=== PATIENT | female | born 1940 | race Caucasian/White ===

== ENCOUNTER → 2019-12-08 | Outpatient (REF) | payer MEDICARE, BC ==
[2019-12-08 13:41] LABS: APPEARANCE, URINE CLEAR (CLEAR); BACTERIA, URINE AUTO NEGATIVE (NEGATIVE); BILIRUBIN, URINE AUTO NEGATIVE (NEGATIVE); BLOOD, URINE BLOOD NEGATIVE (NEGATIVE); COLOR, URINE STRAW (YELLOW); GLUCOSE, URINE (UA) AUTO NEGATIVE (NEGATIVE); KETONE, URINE AUTO NEGATIVE (NEGATIVE); LEUKOCYTE ESTERASE, URINE AUTO NEGATIVE (NEGATIVE); MUCUS, URINE SMALL (NEGATIVE); NITRITE, URINE AUTO NEGATIVE (NEGATIVE); PROTEIN, URINE AUTO NEGATIVE (NEGATIVE); RBC, URINE AUTO 0 /HPF (0-3); SPECIFIC GRAVITY URINE AUTO 1.002 (1.002-1.035); SQUAMOUS EPITHELIAL CELL UR AU 0 /HPF (0-6); UROBILINOGEN, URINE AUTO 0.2 mg/dL (0.0-2.0); WBC, URINE AUTO 0 /HPF (0-3)
== END ==
LOC: M LAB REF 13:01
PROVIDERS: ATTEND General Practice
DX: R39.9 Unspecified symptoms and signs involving the genitourinary system (principal)

== ENCOUNTER 2022-09-20 12:09 | Inpatient (IN) | payer MEDICARE, BC ==
[~2022-09-20] VITALS: Ht 165.1 cm; Wt 45.0 kg
[2022-09-20] MEDS ORDERED: LOSA50TA28 PO (12:30)
[2022-09-20] MEDS ORDERED: MIRT-10 PO (12:30)
[2022-09-20] MEDS ORDERED: CARV25TA PO (12:30)
[2022-09-20] MEDS ORDERED: POTA1TAB23 PO (12:30)
[2022-09-20] MEDS ORDERED: LORA1TAB23 PO (12:30)
[2022-09-20 13:32] LABS: BASO % 0.4 % (0.0-1.0); EOS % 0.2 % (0.0-3.0); HEMATOCRIT 31.6 % (36.0-47.0); HEMOGLOBIN 10.9 g/dl (12.0-15.5); LYMPH # 0.7 10^3/uL (1.5-5.0); LYMPH % 8.4 % (24.0-44.0); MEAN CORPUSCULAR HEMOGLOBIN 34.1 pg (27.0-33.0); MEAN CORPUSCULAR HGB CONC 34.5 g/dl (32.0-36.5); MEAN CORPUSCULAR VOLUME 98.8 fl (80.0-96.0); MONO # 0.8 10^3/uL (0.0-0.8); MONO % 10.2 % (2.0-8.0); NEUTROPHILS # 6.5 10^3/uL (1.5-8.5); NEUTROPHILS % 80.4 % (36.0-66.0); PLATELET COUNT, AUTOMATED 208 10^3/uL (150-450); WHITE BLOOD COUNT 8.1 10^3/uL (4.0-10.0)
[2022-09-20 14:06] LABS: BLOOD UREA NITROGEN 14 MG/DL (9-23); CALCIUM LEVEL 7.9 MG/DL (8.3-10.6); CARBON DIOXIDE LEVEL 26 MMOL/L (20-31); CHLORIDE LEVEL 98 MMOL/L (98-107); CREATININE FOR GFR 0.42 MG/DL (0.55-1.30); GLOMERULAR FILTRATION RATE > 60.0 (>32); GLUCOSE, FASTING 107 MG/DL (74-106); POTASSIUM SERUM 4.4 MMOL/L (3.5-5.1); SODIUM LEVEL 132 MMOL/L (136-145)
[2022-09-20] MEDS ORDERED: VITA100017 PO (15:00)
[2022-09-20] MEDS ORDERED: MULT-90 PO (15:00)
[2022-09-20] MEDS ORDERED: CALTTAB2 PO (15:00)
[2022-09-20] MEDS ORDERED: HOME MED LIST COMPLETE! XX SCH (15:05)
[2022-09-20 15:12] LABS: RSV AMPLIFICATION NEGATIVE (NEGATIVE)
[2022-09-20 16:20] VITALS: BP 151/80
[2022-09-20] MEDS: ACETAMINOPHEN 500 MG TAB PO PRN (16:41)
[2022-09-20] MEDS: CARVedilol 12.5 MG TAB PO SCH (20:26)
[2022-09-20 20:30] VITALS: BP 138/73
[2022-09-20] MEDS ORDERED: MIRTAZAPINE 15 MG TAB PO SCH (21:00)
[2022-09-20] MEDS ORDERED: LORazepam 1 MG TAB PO SCH (21:00)
[2022-09-21 02:02] VITALS: BP 114/58
[2022-09-21] MEDS: ACETAMINOPHEN 500 MG TAB PO PRN ×3 (03:56→15:58)
[2022-09-21 05:33] VITALS: BP 130/63
[2022-09-21 06:17] LABS: HEMATOCRIT 29.3 % (36.0-47.0); HEMOGLOBIN 9.9 g/dl (12.0-15.5); MEAN CORPUSCULAR HEMOGLOBIN 33.6 pg (27.0-33.0); MEAN CORPUSCULAR HGB CONC 33.8 g/dl (32.0-36.5); MEAN CORPUSCULAR VOLUME 99.3 fl (80.0-96.0); PLATELET COUNT, AUTOMATED 179 10^3/uL (150-450); RED BLOOD COUNT 2.95 10^6/uL (4.00-5.40); WHITE BLOOD COUNT 5.8 10^3/uL (4.0-10.0)
[2022-09-21 06:51] LABS: BLOOD UREA NITROGEN 14 MG/DL (9-23); CALCIUM LEVEL 7.9 MG/DL (8.3-10.6); CARBON DIOXIDE LEVEL 27 MMOL/L (20-31); CHLORIDE LEVEL 98 MMOL/L (98-107); CREATININE FOR GFR 0.47 MG/DL (0.55-1.30); GLOMERULAR FILTRATION RATE > 60.0 (>32); GLUCOSE, FASTING 93 MG/DL (74-106); POTASSIUM SERUM 4.2 MMOL/L (3.5-5.1); SODIUM LEVEL 131 MMOL/L (136-145)
[2022-09-21] MEDS ORDERED: ENOXAPARIN 40MG/0.4ML SYRINGE (J1650 PER 10MG) SC SCH (09:00)
[2022-09-21] MEDS ORDERED: POTASSIUM CHLORIDE 10MEQ SR TABLET PO SCH (09:00)
[2022-09-21] MEDS ORDERED: LOSARTAN 50MG TABLET PO SCH (09:00)
[2022-09-21 09:19] VITALS: BP 130/63
[2022-09-21] MEDS: CARVedilol 12.5 MG TAB PO SCH (09:20)
[2022-09-21 10:00] VITALS: BP 120/60
[2022-09-21 14:00] VITALS: BP 120/87
[2022-09-21] MEDS ORDERED: LOVE1INJ SC (19:11)
[2022-09-21] MEDS ORDERED: ACET-683 PO (19:11)
[2022-09-21] MEDS ORDERED: ACET-897 PO (21:34)
[2022-09-21] MEDS ORDERED: ENOX40IN3 SC (21:34)
[2022-09-21] MEDS ORDERED: VITMTA PO (21:34)
== END 2022-09-21 20:00 | DRG 563 ==
LOC: EDBD 12:09 → M ED 12:09 → M ED INP 14:33 → ENRESERV 14:55 → M MSPAV 16:18
PROVIDERS: ADMIT Family Medicine; ATTEND Family Medicine
DX: S42.211A Unspecified displaced fracture of surgical neck of right humerus, initial encounter for closed fracture (principal); W18.30XA Fall on same level, unspecified, initial encounter; Y93.9 Activity, unspecified; Y99.8 Other external cause status; I11.9 Hypertensive heart disease without heart failure; G47.00 Insomnia, unspecified; M81.0 Age-related osteoporosis without current pathological fracture; E55.9 Vitamin D deficiency, unspecified; R29.6 Repeated falls

== ENCOUNTER 2022-09-21 11:24 | Inpatient (IN) | payer MEDICARE, BC ==
[~2022-09-21] VITALS: Ht 165.1 cm; Wt 48.1 kg
[~2022-09-21 11:24] MED LIST: CALTTAB2 PO; CARV25TA PO; LORA1TAB23 PO; LOSA50TA28 PO; MIRT-10 PO; MULT-90 PO; POTA1TAB23 PO; VITA100017 PO
[2022-09-21] MEDS ORDERED: LOVE1INJ SC (19:11)
[2022-09-21] MEDS ORDERED: ACET-683 PO (19:11)
[2022-09-21 20:30] VITALS: BP 175/80; TEMP 96.8; O2SAT 92
[2022-09-21] MEDS: DOCUSATE SODIUM 100MG CAPSULE PO SCH (21:00)
[2022-09-21] MEDS: ACETAMINOPHEN 500 MG TAB PO SCH ×2 (21:00→22:41)
[2022-09-21] MEDS: SENNA 8.6 MG TAB (SENOKOT) PO SCH (21:00)
[2022-09-21] MEDS ORDERED: VITMTA PO (21:34)
[2022-09-21] MEDS ORDERED: ACET-897 PO (21:34)
[2022-09-21] MEDS ORDERED: ENOX40IN3 SC (21:34)
[2022-09-21] MEDS ORDERED: HOME MED LIST COMPLETE! XX SCH (21:35)
[2022-09-21] MEDS: MIRTAZAPINE 15 MG TAB PO SCH (22:40)
[2022-09-21] MEDS: CARVedilol 12.5 MG TAB PO SCH (22:41)
[2022-09-21] MEDS: LORazepam 1 MG TAB PO SCH (23:02)
[2022-09-22 06:00] VITALS: BP 156/74; TEMP 98.6; O2SAT 94
[2022-09-22 06:23] LABS: BASO % 0.5 % (0.0-1.0); EOS # 0.2 10^3/uL (0.0-0.5); EOS % 3.3 % (0.0-3.0); HEMATOCRIT 29.2 % (36.0-47.0); HEMOGLOBIN 10.1 g/dl (12.0-15.5); LYMPH % 17.4 % (24.0-44.0); MEAN CORPUSCULAR HEMOGLOBIN 33.8 pg (27.0-33.0); MEAN CORPUSCULAR HGB CONC 34.6 g/dl (32.0-36.5); MEAN CORPUSCULAR VOLUME 97.7 fl (80.0-96.0); MONO # 0.5 10^3/uL (0.0-0.8); MONO % 8.6 % (2.0-8.0); NEUTROPHILS % 69.8 % (36.0-66.0); PLATELET COUNT, AUTOMATED 199 10^3/uL (150-450); RED BLOOD COUNT 2.99 10^6/uL (4.00-5.40); WHITE BLOOD COUNT 5.7 10^3/uL (4.0-10.0)
[2022-09-22 06:49] LABS: ALBUMIN 2.6 G/DL (3.2-5.2); ALKALINE PHOSPHATASE 90 U/L (46-116); ALT/SGPT 18 U/L (7.0-40); AST/SGOT 15 U/L (<34); BILIRUBIN,TOTAL 0.6 MG/DL (0.3-1.2); BLOOD UREA NITROGEN 13 MG/DL (9-23); CALCIUM LEVEL 8.3 MG/DL (8.3-10.6); CARBON DIOXIDE LEVEL 26 MMOL/L (20-31); CHLORIDE LEVEL 96 MMOL/L (98-107); CREATININE FOR GFR 0.37 MG/DL (0.55-1.30); GLOMERULAR FILTRATION RATE > 60.0 (>32); GLUCOSE, FASTING 98 MG/DL (74-106); POTASSIUM SERUM 4.1 MMOL/L (3.5-5.1); SODIUM LEVEL 127 MMOL/L (136-145); TOTAL PROTEIN 5.4 G/DL (5.7-8.2)
[2022-09-22] MEDS: PANTOPRAZOLE 40MG TAB (PROTONIX) PO SCH (09:00)
[2022-09-22] MEDS ORDERED: POTASSIUM CHLORIDE 10MEQ SR TABLET PO SCH (09:00)
[2022-09-22] MEDS ORDERED: LOSARTAN 50MG TABLET PO SCH (09:00)
[2022-09-22] MEDS: DOCUSATE SODIUM 100MG CAPSULE PO SCH ×2 (09:08→20:06)
[2022-09-22] MEDS: ENOXAPARIN 40MG/0.4ML SYRINGE (J1650 PER 10MG) SC SCH (09:10)
[2022-09-22] MEDS: ACETAMINOPHEN 500 MG TAB PO SCH ×3 (09:10→21:00)
[2022-09-22] MEDS: CARVedilol 12.5 MG TAB PO SCH ×2 (09:10→19:44)
[2022-09-22] MEDS: VITAMIN D 1,000 INTERNATIONAL UNITS TABLET PO SCH (12:40)
[2022-09-22 13:29] LABS: FERRITIN 234.6 NG/ML (7.3-270.7)
[2022-09-22 13:31] LABS: FOLATE 20.98 NG/ML (>5.4)
[2022-09-22 14:00] VITALS: BP 158/70; TEMP 97.4; O2SAT 96
[2022-09-22 16:24] LABS: OSMOLALITY URINE 551 MOSM/KG (50-1400)
[2022-09-22] MEDS: NS 1,000 ML IV SCH (16:25)
[2022-09-22 16:38] LABS: SODIUM,RANDOM URINE 28 MMOL/L
[2022-09-22 18:45] LABS: SODIUM LEVEL 124 MMOL/L (136-145)
[2022-09-22 20:00] VITALS: BP 164/82; TEMP 97.6; O2SAT 98
[2022-09-22] MEDS: MIRTAZAPINE 15 MG TAB PO SCH (20:02)
[2022-09-22] MEDS: SENNA 8.6 MG TAB (SENOKOT) PO SCH (20:06)
[2022-09-22 20:41] LABS: OSMOLALITY SERUM 258 MOSM/KG (280-301)
[2022-09-22] MEDS ORDERED: LORazepam 1 MG TAB PO SCH (21:00)
[2022-09-22] MEDS: LORazepam 1 MG TAB PO SCH (21:02)
[2022-09-22] MEDS: LOSARTAN 50MG TABLET PO SCH (21:02)
[2022-09-23 06:00] VITALS: BP 155/74; TEMP 97.6; O2SAT 95
[2022-09-23 06:03] LABS: BLOOD UREA NITROGEN 11 MG/DL (9-23); CALCIUM LEVEL 7.6 MG/DL (8.3-10.6); CARBON DIOXIDE LEVEL 24 MMOL/L (20-31); CHLORIDE LEVEL 95 MMOL/L (98-107); CREATININE FOR GFR 0.35 MG/DL (0.55-1.30); GLOMERULAR FILTRATION RATE > 60.0 (>32); GLUCOSE, FASTING 88 MG/DL (74-106); POTASSIUM SERUM 3.7 MMOL/L (3.5-5.1); SODIUM LEVEL 125 MMOL/L (136-145)
[2022-09-23] MEDS: PANTOPRAZOLE 40MG TAB (PROTONIX) PO SCH (07:21)
[2022-09-23] MEDS: ACETAMINOPHEN 500 MG TAB PO SCH ×3 (07:22→19:27)
[2022-09-23] MEDS: DOCUSATE SODIUM 100MG CAPSULE PO SCH ×2 (07:22→19:26)
[2022-09-23] MEDS: VITAMIN D 1,000 INTERNATIONAL UNITS TABLET PO SCH (07:23)
[2022-09-23] MEDS: ENOXAPARIN 40MG/0.4ML SYRINGE (J1650 PER 10MG) SC SCH (07:23)
[2022-09-23] MEDS: LOSARTAN 50MG TABLET PO SCH ×2 (07:23→20:20)
[2022-09-23] MEDS: CARVedilol 12.5 MG TAB PO SCH ×2 (07:23→20:21)
[2022-09-23] MEDS: NS 1,000 ML IV SCH (07:39)
[2022-09-23 09:54] LABS: URIC ACID 1.2 MG/DL (3.1-7.8)
[2022-09-23] MEDS ORDERED: TOLVAPTAN 7.5 MG HALF-TAB PO ONE (11:00)
[2022-09-23] MEDS: GABAPENTIN 100 MG CAP PO SCH ×3 (11:14→20:19)
[2022-09-23 14:00] VITALS: BP 164/69; TEMP 97.2; O2SAT 95
[2022-09-23] MEDS: SENNA 8.6 MG TAB (SENOKOT) PO SCH (19:25)
[2022-09-23 20:00] VITALS: BP 159/84; TEMP 97.9; O2SAT 94
[2022-09-23] MEDS: MIRTAZAPINE 15 MG TAB PO SCH (20:20)
[2022-09-23] MEDS: LORazepam 1 MG TAB PO SCH (20:20)
[2022-09-23] MEDS ORDERED: MAGNESIUM OXIDE 400MG TAB (MAG-OX) PO SCH (21:00)
[2022-09-24 06:00] VITALS: BP 148/71; TEMP 98; O2SAT 95
[2022-09-24 06:57] LABS: BLOOD UREA NITROGEN 12 MG/DL (9-23); CALCIUM LEVEL 7.7 MG/DL (8.3-10.6); CARBON DIOXIDE LEVEL 25 MMOL/L (20-31); CHLORIDE LEVEL 103 MMOL/L (98-107); CREATININE FOR GFR 0.46 MG/DL (0.55-1.30); GLOMERULAR FILTRATION RATE > 60.0 (>32); GLUCOSE, FASTING 82 MG/DL (74-106); POTASSIUM SERUM 3.7 MMOL/L (3.5-5.1); SODIUM LEVEL 134 MMOL/L (136-145)
[2022-09-24] MEDS: DOCUSATE SODIUM 100MG CAPSULE PO SCH ×2 (07:15→20:13)
[2022-09-24] MEDS: VITAMIN D 1,000 INTERNATIONAL UNITS TABLET PO SCH (07:15)
[2022-09-24] MEDS: GABAPENTIN 100 MG CAP PO SCH (07:15)
[2022-09-24] MEDS: PANTOPRAZOLE 40MG TAB (PROTONIX) PO SCH (07:16)
[2022-09-24] MEDS: ACETAMINOPHEN 500 MG TAB PO SCH ×3 (07:16→20:21)
[2022-09-24] MEDS: CARVedilol 12.5 MG TAB PO SCH ×2 (07:16→20:17)
[2022-09-24] MEDS: LOSARTAN 50MG TABLET PO SCH ×2 (07:16→20:14)
[2022-09-24] MEDS: ENOXAPARIN 40MG/0.4ML SYRINGE (J1650 PER 10MG) SC SCH (07:17)
[2022-09-24 11:27] LABS: MAGNESIUM LEVEL 1.6 MG/DL (1.8-2.4)
[2022-09-24 14:00] VITALS: BP 167/72; TEMP 97.9; O2SAT 93
[2022-09-24] MEDS: THIAMINE 100 MG TAB PO SCH (15:12)
[2022-09-24] MEDS: MAGNESIUM OXIDE 400MG TAB (MAG-OX) PO SCH ×2 (15:12→20:17)
[2022-09-24] MEDS ORDERED: SODIUM CHLORIDE 1 GM TAB PO ONE (17:30)
[2022-09-24 20:00] VITALS: BP 161/81; TEMP 98.1; O2SAT 92
[2022-09-24] MEDS: SODIUM CHLORIDE 1 GM TAB PO SCH (20:13)
[2022-09-24] MEDS: SENNA 8.6 MG TAB (SENOKOT) PO SCH (20:13)
[2022-09-24] MEDS: MIRTAZAPINE 7.5MG PER 1/2 TABLET PO SCH (20:49)
[2022-09-24] MEDS: LORazepam 1 MG TAB PO SCH (20:49)
[2022-09-24] MEDS ORDERED: GABAPENTIN 100 MG CAP PO SCH (21:00)
[2022-09-25 06:00] VITALS: BP 132/70; TEMP 98.1; O2SAT 96
[2022-09-25 07:18] LABS: BASO % 0.3 % (0.0-1.0); EOS # 0.1 10^3/uL (0.0-0.5); EOS % 1.5 % (0.0-3.0); HEMOGLOBIN 9.7 g/dl (12.0-15.5); LYMPH # 0.7 10^3/uL (1.5-5.0); LYMPH % 11.1 % (24.0-44.0); MEAN CORPUSCULAR HEMOGLOBIN 34.4 pg (27.0-33.0); MEAN CORPUSCULAR HGB CONC 34.6 g/dl (32.0-36.5); MEAN CORPUSCULAR VOLUME 99.3 fl (80.0-96.0); MONO # 0.4 10^3/uL (0.0-0.8); MONO % 7.1 % (2.0-8.0); NEUTROPHILS # 4.7 10^3/uL (1.5-8.5); NEUTROPHILS % 79.7 % (36.0-66.0); PLATELET COUNT, AUTOMATED 200 10^3/uL (150-450); RED BLOOD COUNT 2.82 10^6/uL (4.00-5.40)
[2022-09-25 07:31] LABS: BLOOD UREA NITROGEN 10 MG/DL (9-23); CALCIUM LEVEL 7.8 MG/DL (8.3-10.6); CARBON DIOXIDE LEVEL 26 MMOL/L (20-31); CHLORIDE LEVEL 99 MMOL/L (98-107); GLOMERULAR FILTRATION RATE > 60.0 (>32); GLUCOSE, FASTING 90 MG/DL (74-106); POTASSIUM SERUM 3.7 MMOL/L (3.5-5.1); SODIUM LEVEL 132 MMOL/L (136-145)
[2022-09-25] MEDS: THIAMINE 100 MG TAB PO SCH (08:22)
[2022-09-25] MEDS: LOSARTAN 50MG TABLET PO SCH ×2 (08:26→20:11)
[2022-09-25] MEDS: PANTOPRAZOLE 40MG TAB (PROTONIX) PO SCH (08:26)
[2022-09-25] MEDS: ACETAMINOPHEN 500 MG TAB PO SCH ×3 (08:26→20:10)
[2022-09-25] MEDS: DOCUSATE SODIUM 100MG CAPSULE PO SCH ×3 (08:26→20:11)
[2022-09-25] MEDS: SODIUM CHLORIDE 1 GM TAB PO SCH ×2 (08:26→20:09)
[2022-09-25] MEDS: MAGNESIUM OXIDE 400MG TAB (MAG-OX) PO SCH ×3 (08:26→20:11)
[2022-09-25] MEDS: ENOXAPARIN 40MG/0.4ML SYRINGE (J1650 PER 10MG) SC SCH (08:27)
[2022-09-25] MEDS: VITAMIN D 1,000 INTERNATIONAL UNITS TABLET PO SCH (08:27)
[2022-09-25] MEDS: CARVedilol 12.5 MG TAB PO SCH ×2 (08:27→20:10)
[2022-09-25] MEDS: GABAPENTIN 100 MG CAP PO SCH ×3 (09:47→20:10)
[2022-09-25 14:00] VITALS: BP 150/67; TEMP 97.3; O2SAT 98
[2022-09-25 19:25] VITALS: BP 148/76; TEMP 97; O2SAT 97
[2022-09-25] MEDS: SENNA 8.6 MG TAB (SENOKOT) PO SCH (20:10)
[2022-09-25] MEDS: MIRTAZAPINE 7.5MG PER 1/2 TABLET PO SCH (21:12)
[2022-09-25] MEDS: LORazepam 1 MG TAB PO SCH (21:13)
[2022-09-26 05:29] VITALS: BP 144/70; TEMP 97.5; O2SAT 94
[2022-09-26] MEDS ORDERED: tiZANidine 4 MG TAB PO ONE (05:40)
[2022-09-26 06:16] LABS: BLOOD UREA NITROGEN 11 MG/DL (9-23); CALCIUM LEVEL 8.1 MG/DL (8.3-10.6); CARBON DIOXIDE LEVEL 28 MMOL/L (20-31); CHLORIDE LEVEL 96 MMOL/L (98-107); CREATININE FOR GFR 0.39 MG/DL (0.55-1.30); GLOMERULAR FILTRATION RATE > 60.0 (>32); GLUCOSE, FASTING 95 MG/DL (74-106); SODIUM LEVEL 128 MMOL/L (136-145)
[2022-09-26 07:23] LABS: MAGNESIUM LEVEL 1.6 MG/DL (1.8-2.4)
[2022-09-26] MEDS: ACETAMINOPHEN 500 MG TAB PO SCH ×3 (07:39→20:39)
[2022-09-26] MEDS: MAGNESIUM OXIDE 400MG TAB (MAG-OX) PO SCH ×3 (07:39→20:39)
[2022-09-26] MEDS: GABAPENTIN 100 MG CAP PO SCH ×3 (07:40→21:24)
[2022-09-26] MEDS: VITAMIN D 1,000 INTERNATIONAL UNITS TABLET PO SCH (08:38)
[2022-09-26] MEDS: PANTOPRAZOLE 40MG TAB (PROTONIX) PO SCH (08:38)
[2022-09-26] MEDS: THIAMINE 100 MG TAB PO SCH (08:38)
[2022-09-26] MEDS: ENOXAPARIN 40MG/0.4ML SYRINGE (J1650 PER 10MG) SC SCH (08:38)
[2022-09-26] MEDS: DOCUSATE SODIUM 100MG CAPSULE PO SCH ×2 (08:38→19:48)
[2022-09-26] MEDS: SODIUM CHLORIDE 1 GM TAB PO SCH (08:38)
[2022-09-26] MEDS: CARVedilol 12.5 MG TAB PO SCH ×2 (08:39→20:39)
[2022-09-26] MEDS: LOSARTAN 50MG TABLET PO SCH ×2 (08:39→20:39)
[2022-09-26 14:00] VITALS: BP 147/72; TEMP 97.6; O2SAT 95
[2022-09-26] MEDS ORDERED: TOLVAPTAN 7.5 MG HALF-TAB PO ONE (14:00)
[2022-09-26] MEDS: SENNA 8.6 MG TAB (SENOKOT) PO SCH (19:48)
[2022-09-26 20:00] VITALS: BP 162/86; TEMP 97.3; O2SAT 95
[2022-09-26] MEDS: MIRTAZAPINE 7.5MG PER 1/2 TABLET PO SCH (20:39)
[2022-09-26] MEDS: LORazepam 1 MG TAB PO SCH (21:24)
[2022-09-27 06:00] VITALS: BP 159/73; TEMP 97.3; O2SAT 93
[2022-09-27 07:12] LABS: BLOOD UREA NITROGEN 9 MG/DL (9-23); CALCIUM LEVEL 8.5 MG/DL (8.3-10.6); CARBON DIOXIDE LEVEL 28 MMOL/L (20-31); CHLORIDE LEVEL 100 MMOL/L (98-107); GLOMERULAR FILTRATION RATE > 60.0 (>32); GLUCOSE, FASTING 90 MG/DL (74-106); POTASSIUM SERUM 3.8 MMOL/L (3.5-5.1); SODIUM LEVEL 134 MMOL/L (136-145)
[2022-09-27] MEDS: GABAPENTIN 100 MG CAP PO SCH ×3 (07:48→20:22)
[2022-09-27] MEDS: ACETAMINOPHEN 500 MG TAB PO SCH ×3 (07:49→21:00)
[2022-09-27] MEDS: THIAMINE 100 MG TAB PO SCH (07:49)
[2022-09-27] MEDS: PANTOPRAZOLE 40MG TAB (PROTONIX) PO SCH (07:49)
[2022-09-27] MEDS: VITAMIN D 1,000 INTERNATIONAL UNITS TABLET PO SCH (07:49)
[2022-09-27] MEDS: MAGNESIUM OXIDE 400MG TAB (MAG-OX) PO SCH ×3 (07:49→20:23)
[2022-09-27] MEDS: ENOXAPARIN 40MG/0.4ML SYRINGE (J1650 PER 10MG) SC SCH (07:50)
[2022-09-27] MEDS: DOCUSATE SODIUM 100MG CAPSULE PO SCH ×2 (07:50→20:22)
[2022-09-27] MEDS: LOSARTAN 50MG TABLET PO SCH ×2 (07:50→20:22)
[2022-09-27] MEDS: CARVedilol 12.5 MG TAB PO SCH ×2 (07:50→20:22)
[2022-09-27] MEDS: amLODIPine 5 MG TAB PO SCH (12:12)
[2022-09-27 14:00] VITALS: BP 160/67; TEMP 97.8; O2SAT 97
[2022-09-27 20:00] VITALS: BP 150/67; TEMP 98.3; O2SAT 96
[2022-09-27] MEDS: MIRTAZAPINE 7.5MG PER 1/2 TABLET PO SCH (20:21)
[2022-09-27] MEDS: SENNA 8.6 MG TAB (SENOKOT) PO SCH (20:22)
[2022-09-27] MEDS: LORazepam 1 MG TAB PO SCH (21:13)
[2022-09-28 06:00] VITALS: BP 144/69; TEMP 98.5; O2SAT 94
[2022-09-28 06:32] LABS: BASO % 0.6 % (0.0-1.0); EOS # 0.1 10^3/uL (0.0-0.5); EOS % 1.1 % (0.0-3.0); HEMATOCRIT 29.3 % (36.0-47.0); HEMOGLOBIN 9.8 g/dl (12.0-15.5); LYMPH # 0.8 10^3/uL (1.5-5.0); LYMPH % 12.3 % (24.0-44.0); MEAN CORPUSCULAR HEMOGLOBIN 33.9 pg (27.0-33.0); MEAN CORPUSCULAR HGB CONC 33.4 g/dl (32.0-36.5); MEAN CORPUSCULAR VOLUME 101.4 fl (80.0-96.0); MONO # 0.5 10^3/uL (0.0-0.8); MONO % 7.1 % (2.0-8.0); NEUTROPHILS % 78.4 % (36.0-66.0); PLATELET COUNT, AUTOMATED 241 10^3/uL (150-450); RED BLOOD COUNT 2.89 10^6/uL (4.00-5.40); WHITE BLOOD COUNT 6.4 10^3/uL (4.0-10.0)
[2022-09-28 07:00] LABS: BLOOD UREA NITROGEN 12 MG/DL (9-23); CALCIUM LEVEL 8.4 MG/DL (8.3-10.6); CARBON DIOXIDE LEVEL 27 MMOL/L (20-31); CHLORIDE LEVEL 98 MMOL/L (98-107); GLOMERULAR FILTRATION RATE > 60.0 (>32); GLUCOSE, FASTING 86 MG/DL (74-106); MAGNESIUM LEVEL 1.8 MG/DL (1.8-2.4); POTASSIUM SERUM 3.9 MMOL/L (3.5-5.1); SODIUM LEVEL 131 MMOL/L (136-145)
[2022-09-28] MEDS: GABAPENTIN 100 MG CAP PO SCH ×3 (08:15→20:14)
[2022-09-28] MEDS: amLODIPine 5 MG TAB PO SCH (08:16)
[2022-09-28] MEDS: MAGNESIUM OXIDE 400MG TAB (MAG-OX) PO SCH ×3 (08:16→20:14)
[2022-09-28] MEDS: PANTOPRAZOLE 40MG TAB (PROTONIX) PO SCH (08:16)
[2022-09-28] MEDS: ACETAMINOPHEN 500 MG TAB PO SCH ×3 (08:16→21:00)
[2022-09-28] MEDS: THIAMINE 100 MG TAB PO SCH (08:17)
[2022-09-28] MEDS: VITAMIN D 1,000 INTERNATIONAL UNITS TABLET PO SCH (08:17)
[2022-09-28] MEDS: ENOXAPARIN 40MG/0.4ML SYRINGE (J1650 PER 10MG) SC SCH (08:17)
[2022-09-28] MEDS: CARVedilol 12.5 MG TAB PO SCH ×2 (08:17→21:00)
[2022-09-28] MEDS: DOCUSATE SODIUM 100MG CAPSULE PO SCH ×2 (08:17→20:15)
[2022-09-28] MEDS: LOSARTAN 50MG TABLET PO SCH ×3 (08:17→21:00)
[2022-09-28 14:00] VITALS: BP 115/60; TEMP 98.2; O2SAT 96
[2022-09-28 20:00] VITALS: BP 119/56; TEMP 98.1; O2SAT 94
[2022-09-28] MEDS: MIRTAZAPINE 7.5MG PER 1/2 TABLET PO SCH (20:15)
[2022-09-28] MEDS: SENNA 8.6 MG TAB (SENOKOT) PO SCH (20:15)
[2022-09-28] MEDS: LORazepam 1 MG TAB PO SCH (21:16)
[2022-09-29] MEDS ORDERED: carisoprodoL 350 MG TAB PO PRN (04:40)
[2022-09-29 06:00] VITALS: BP 132/67; TEMP 98.1; O2SAT 94
[2022-09-29] MEDS: ACETAMINOPHEN 500 MG TAB PO SCH ×3 (07:20→20:28)
[2022-09-29] MEDS: amLODIPine 5 MG TAB PO SCH (07:24)
[2022-09-29] MEDS: CARVedilol 12.5 MG TAB PO SCH ×2 (07:24→20:29)
[2022-09-29] MEDS: PANTOPRAZOLE 40MG TAB (PROTONIX) PO SCH (07:24)
[2022-09-29] MEDS: LOSARTAN 50MG TABLET PO SCH ×2 (07:25→20:28)
[2022-09-29] MEDS: DOCUSATE SODIUM 100MG CAPSULE PO SCH ×2 (07:25→20:28)
[2022-09-29] MEDS: MAGNESIUM OXIDE 400MG TAB (MAG-OX) PO SCH (07:25)
[2022-09-29] MEDS: GABAPENTIN 100 MG CAP PO SCH ×3 (07:25→20:28)
[2022-09-29] MEDS: THIAMINE 100 MG TAB PO SCH (07:25)
[2022-09-29] MEDS: VITAMIN D 1,000 INTERNATIONAL UNITS TABLET PO SCH (07:26)
[2022-09-29] MEDS: ENOXAPARIN 40MG/0.4ML SYRINGE (J1650 PER 10MG) SC SCH (07:26)
[2022-09-29 09:51] LABS: ALBUMIN 2.7 G/DL (3.2-5.2); BLOOD UREA NITROGEN 11 MG/DL (9-23); CALCIUM LEVEL 7.8 MG/DL (8.3-10.6); CARBON DIOXIDE LEVEL 27 MMOL/L (20-31); CHLORIDE LEVEL 98 MMOL/L (98-107); CREATININE FOR GFR 0.36 MG/DL (0.55-1.30); GLOMERULAR FILTRATION RATE > 60.0 (>32); GLUCOSE, FASTING 94 MG/DL (74-106); PHOSPHORUS LEVEL 3.3 MG/DL (2.4-5.1); POTASSIUM SERUM 3.9 MMOL/L (3.5-5.1); SODIUM LEVEL 131 MMOL/L (136-145)
[2022-09-29] MEDS ORDERED: IBUPROFEN 600MG TAB PO ONE (11:00)
[2022-09-29] MEDS ORDERED: traMADol 50 MG TAB PO PRN (11:40)
[2022-09-29] MEDS: CYCLOBENZAPRINE 5MG TABLET PO PRN ×2 (12:10→21:08)
[2022-09-29 14:00] VITALS: BP 151/70; TEMP 98.3; O2SAT 95
[2022-09-29] MEDS: ANALGESIC BALM CRM 3OZ TOP SCH ×2 (15:46→20:29)
[2022-09-29 20:00] VITALS: BP 135/65; TEMP 97.3; O2SAT 95
[2022-09-29] MEDS: SENNA 8.6 MG TAB (SENOKOT) PO SCH (20:28)
[2022-09-29] MEDS ORDERED: LORazepam 0.5 MG TAB PO SCH (21:00)
[2022-09-29] MEDS: MIRTAZAPINE 7.5MG PER 1/2 TABLET PO SCH (21:07)
[2022-09-30 06:00] VITALS: BP 149/77; TEMP 97.9; O2SAT 93
[2022-09-30] MEDS: DOCUSATE SODIUM 100MG CAPSULE PO SCH ×2 (08:43→20:14)
[2022-09-30] MEDS: GABAPENTIN 100 MG CAP PO SCH ×3 (08:44→20:13)
[2022-09-30] MEDS: CARVedilol 12.5 MG TAB PO SCH ×2 (08:44→20:13)
[2022-09-30] MEDS: PANTOPRAZOLE 40MG TAB (PROTONIX) PO SCH (08:44)
[2022-09-30] MEDS: ACETAMINOPHEN 500 MG TAB PO SCH ×3 (08:44→20:14)
[2022-09-30] MEDS: THIAMINE 100 MG TAB PO SCH (08:45)
[2022-09-30] MEDS: LOSARTAN 50MG TABLET PO SCH ×2 (08:45→20:13)
[2022-09-30] MEDS: ENOXAPARIN 40MG/0.4ML SYRINGE (J1650 PER 10MG) SC SCH (08:45)
[2022-09-30] MEDS: MAGNESIUM OXIDE 400MG TAB (MAG-OX) PO SCH (08:45)
[2022-09-30] MEDS: VITAMIN D 1,000 INTERNATIONAL UNITS TABLET PO SCH (08:45)
[2022-09-30] MEDS: amLODIPine 5 MG TAB PO SCH (08:45)
[2022-09-30] MEDS: ANALGESIC BALM CRM 3OZ TOP SCH ×3 (08:46→20:15)
[2022-09-30] MEDS: CYCLOBENZAPRINE 5MG TABLET PO PRN (08:47)
[2022-09-30 09:47] LABS: ALBUMIN 2.9 G/DL (3.2-5.2); BLOOD UREA NITROGEN 11 MG/DL (9-23); CALCIUM LEVEL 8.6 MG/DL (8.3-10.6); CARBON DIOXIDE LEVEL 28 MMOL/L (20-31); CHLORIDE LEVEL 96 MMOL/L (98-107); CREATININE FOR GFR 0.58 MG/DL (0.55-1.30); GLOMERULAR FILTRATION RATE > 60.0 (>32); GLUCOSE, FASTING 95 MG/DL (74-106); PHOSPHORUS LEVEL 3.5 MG/DL (2.4-5.1); POTASSIUM SERUM 3.9 MMOL/L (3.5-5.1); SODIUM LEVEL 128 MMOL/L (136-145)
[2022-09-30] MEDS ORDERED: TOLVAPTAN 7.5 MG HALF-TAB PO ONE (13:00)
[2022-09-30 14:00] VITALS: BP 143/64; TEMP 97.4; O2SAT 94
[2022-09-30 20:08] VITALS: BP 142/76; TEMP 97.9; O2SAT 95
[2022-09-30] MEDS: SENNA 8.6 MG TAB (SENOKOT) PO SCH (20:14)
[2022-09-30] MEDS: LORazepam 1 MG TAB PO SCH (21:14)
[2022-09-30] MEDS: MIRTAZAPINE 7.5MG PER 1/2 TABLET PO SCH (21:14)
[2022-10-01 07:33] VITALS: BP 138/69; TEMP 97.8; O2SAT 95
[2022-10-01] MEDS: ANALGESIC BALM CRM 3OZ TOP SCH ×3 (09:00→21:00)
[2022-10-01] MEDS: ACETAMINOPHEN 500 MG TAB PO SCH ×3 (09:00→21:00)
[2022-10-01] MEDS: GABAPENTIN 100 MG CAP PO SCH ×3 (09:03→21:37)
[2022-10-01] MEDS: DOCUSATE SODIUM 100MG CAPSULE PO SCH ×2 (09:03→21:37)
[2022-10-01] MEDS: THIAMINE 100 MG TAB PO SCH (09:03)
[2022-10-01] MEDS: PANTOPRAZOLE 40MG TAB (PROTONIX) PO SCH (09:04)
[2022-10-01] MEDS: VITAMIN D 1,000 INTERNATIONAL UNITS TABLET PO SCH (09:04)
[2022-10-01] MEDS: MAGNESIUM OXIDE 400MG TAB (MAG-OX) PO SCH (09:04)
[2022-10-01] MEDS: CYCLOBENZAPRINE 5MG TABLET PO PRN (09:04)
[2022-10-01] MEDS: LOSARTAN 50MG TABLET PO SCH ×2 (09:05→21:37)
[2022-10-01] MEDS: CARVedilol 12.5 MG TAB PO SCH ×2 (09:05→21:37)
[2022-10-01] MEDS: amLODIPine 5 MG TAB PO SCH (09:05)
[2022-10-01] MEDS: ENOXAPARIN 40MG/0.4ML SYRINGE (J1650 PER 10MG) SC SCH (09:06)
[2022-10-01 09:47] LABS: BLOOD UREA NITROGEN 12 MG/DL (9-23); CALCIUM LEVEL 8.3 MG/DL (8.3-10.6); CARBON DIOXIDE LEVEL 27 MMOL/L (20-31); CHLORIDE LEVEL 99 MMOL/L (98-107); CREATININE FOR GFR 0.53 MG/DL (0.55-1.30); GLOMERULAR FILTRATION RATE > 60.0 (>32); GLUCOSE, FASTING 109 MG/DL (74-106); POTASSIUM SERUM 3.9 MMOL/L (3.5-5.1); SODIUM LEVEL 133 MMOL/L (136-145)
[2022-10-01 14:00] VITALS: BP 114/57; TEMP 97.9; O2SAT 95
[2022-10-01 21:29] VITALS: BP 162/83; TEMP 98.3; O2SAT 94
[2022-10-01] MEDS: SENNA 8.6 MG TAB (SENOKOT) PO SCH (21:37)
[2022-10-01] MEDS: LORazepam 1 MG TAB PO SCH (21:37)
[2022-10-01] MEDS: MIRTAZAPINE 7.5MG PER 1/2 TABLET PO SCH (21:54)
[2022-10-02 05:25] VITALS: BP 151/72; TEMP 98.3; O2SAT 93
[2022-10-02 05:27] VITALS: O2SAT 95
[2022-10-02] MEDS: CYCLOBENZAPRINE 5MG TABLET PO PRN ×2 (05:53→15:06)
[2022-10-02] MEDS: ACETAMINOPHEN 500 MG TAB PO SCH ×3 (05:58→20:00)
[2022-10-02 06:56] LABS: BASO % 0.5 % (0.0-1.0); EOS # 0.1 10^3/uL (0.0-0.5); EOS % 2.1 % (0.0-3.0); HEMATOCRIT 29.3 % (36.0-47.0); HEMOGLOBIN 9.9 g/dl (12.0-15.5); LYMPH # 0.8 10^3/uL (1.5-5.0); LYMPH % 13.8 % (24.0-44.0); MEAN CORPUSCULAR HEMOGLOBIN 34.4 pg (27.0-33.0); MEAN CORPUSCULAR HGB CONC 33.8 g/dl (32.0-36.5); MEAN CORPUSCULAR VOLUME 101.7 fl (80.0-96.0); MONO # 0.5 10^3/uL (0.0-0.8); MONO % 8.5 % (2.0-8.0); NEUTROPHILS # 4.2 10^3/uL (1.5-8.5); NEUTROPHILS % 74.7 % (36.0-66.0); PLATELET COUNT, AUTOMATED 273 10^3/uL (150-450); RED BLOOD COUNT 2.88 10^6/uL (4.00-5.40); WHITE BLOOD COUNT 5.7 10^3/uL (4.0-10.0)
[2022-10-02 07:25] LABS: BLOOD UREA NITROGEN 12 MG/DL (9-23); CALCIUM LEVEL 8.9 MG/DL (8.3-10.6); CARBON DIOXIDE LEVEL 27 MMOL/L (20-31); CHLORIDE LEVEL 97 MMOL/L (98-107); GLOMERULAR FILTRATION RATE > 60.0 (>32); GLUCOSE, FASTING 95 MG/DL (74-106); POTASSIUM SERUM 3.9 MMOL/L (3.5-5.1); SODIUM LEVEL 132 MMOL/L (136-145)
[2022-10-02] MEDS: MAGNESIUM OXIDE 400MG TAB (MAG-OX) PO SCH (09:19)
[2022-10-02] MEDS: GABAPENTIN 100 MG CAP PO SCH ×3 (09:19→20:00)
[2022-10-02] MEDS: DOCUSATE SODIUM 100MG CAPSULE PO SCH ×2 (09:20→20:01)
[2022-10-02] MEDS: CARVedilol 12.5 MG TAB PO SCH ×2 (09:21→20:01)
[2022-10-02] MEDS: THIAMINE 100 MG TAB PO SCH (09:21)
[2022-10-02] MEDS: PANTOPRAZOLE 40MG TAB (PROTONIX) PO SCH (09:21)
[2022-10-02] MEDS: VITAMIN D 1,000 INTERNATIONAL UNITS TABLET PO SCH (09:21)
[2022-10-02] MEDS: amLODIPine 5 MG TAB PO SCH (09:21)
[2022-10-02] MEDS: LOSARTAN 50MG TABLET PO SCH ×2 (09:22→20:01)
[2022-10-02] MEDS: ENOXAPARIN 40MG/0.4ML SYRINGE (J1650 PER 10MG) SC SCH (09:22)
[2022-10-02] MEDS: ANALGESIC BALM CRM 3OZ TOP SCH ×3 (09:22→20:02)
[2022-10-02] MEDS: MIRALAX *UNIT DOSE* 17GM PACKET PO SCH (11:01)
[2022-10-02 14:05] VITALS: BP 141/76; TEMP 97.9; O2SAT 95
[2022-10-02] MEDS: FLEET ENEMA PR PRN (16:57)
[2022-10-02] MEDS: BISACODYL 5MG TAB PO SCH (17:16)
[2022-10-02 19:21] VITALS: BP 118/58; TEMP 98; O2SAT 92
[2022-10-02] MEDS: SENNA 8.6 MG TAB (SENOKOT) PO SCH (20:01)
[2022-10-02] MEDS: MIRTAZAPINE 7.5MG PER 1/2 TABLET PO SCH (21:16)
[2022-10-02] MEDS: LORazepam 1 MG TAB PO SCH (21:17)
[2022-10-03 05:48] VITALS: BP 142/77; TEMP 97.5; O2SAT 97
[2022-10-03] MEDS: CYCLOBENZAPRINE 5MG TABLET PO PRN ×2 (06:23→17:28)
[2022-10-03] MEDS: ENOXAPARIN 40MG/0.4ML SYRINGE (J1650 PER 10MG) SC SCH (08:35)
[2022-10-03] MEDS: ANALGESIC BALM CRM 3OZ TOP SCH ×3 (08:36→20:17)
[2022-10-03] MEDS: BISACODYL 5MG TAB PO SCH (08:37)
[2022-10-03] MEDS: MIRALAX *UNIT DOSE* 17GM PACKET PO SCH (08:37)
[2022-10-03] MEDS: CARVedilol 12.5 MG TAB PO SCH ×2 (08:38→20:16)
[2022-10-03] MEDS: PANTOPRAZOLE 40MG TAB (PROTONIX) PO SCH (08:38)
[2022-10-03] MEDS: THIAMINE 100 MG TAB PO SCH (08:39)
[2022-10-03] MEDS: amLODIPine 5 MG TAB PO SCH (08:39)
[2022-10-03] MEDS: DOCUSATE SODIUM 100MG CAPSULE PO SCH ×2 (08:39→20:16)
[2022-10-03] MEDS: ACETAMINOPHEN 500 MG TAB PO SCH ×3 (08:39→20:17)
[2022-10-03] MEDS: VITAMIN D 1,000 INTERNATIONAL UNITS TABLET PO SCH (08:39)
[2022-10-03] MEDS: LOSARTAN 50MG TABLET PO SCH ×2 (08:39→20:16)
[2022-10-03] MEDS: GABAPENTIN 100 MG CAP PO SCH ×3 (08:40→21:12)
[2022-10-03] MEDS: MAGNESIUM OXIDE 400MG TAB (MAG-OX) PO SCH (08:40)
[2022-10-03 14:00] VITALS: BP 112/56; TEMP 97.5; O2SAT 95
[2022-10-03] MEDS: FLEET ENEMA PR PRN (16:20)
[2022-10-03 19:17] VITALS: BP 137/66; TEMP 97.6; O2SAT 96
[2022-10-03] MEDS: MIRTAZAPINE 7.5MG PER 1/2 TABLET PO SCH (20:16)
[2022-10-03] MEDS: SENNA 8.6 MG TAB (SENOKOT) PO SCH (20:16)
[2022-10-03] MEDS: LORazepam 1 MG TAB PO SCH (21:12)
[2022-10-04 05:51] VITALS: BP 126/88; TEMP 98.1; O2SAT 97
[2022-10-04] MEDS: ACETAMINOPHEN 500 MG TAB PO SCH ×3 (07:17→21:00)
[2022-10-04] MEDS: CYCLOBENZAPRINE 5MG TABLET PO PRN (07:17)
[2022-10-04] MEDS: MAGNESIUM OXIDE 400MG TAB (MAG-OX) PO SCH (07:20)
[2022-10-04] MEDS: PANTOPRAZOLE 40MG TAB (PROTONIX) PO SCH (07:20)
[2022-10-04] MEDS: CARVedilol 12.5 MG TAB PO SCH ×2 (07:20→21:00)
[2022-10-04] MEDS: amLODIPine 5 MG TAB PO SCH (07:20)
[2022-10-04] MEDS: VITAMIN D 1,000 INTERNATIONAL UNITS TABLET PO SCH (07:20)
[2022-10-04] MEDS: BISACODYL 5MG TAB PO SCH (07:20)
[2022-10-04] MEDS: LOSARTAN 50MG TABLET PO SCH ×2 (07:21→21:00)
[2022-10-04] MEDS: THIAMINE 100 MG TAB PO SCH (07:21)
[2022-10-04] MEDS: MIRALAX *UNIT DOSE* 17GM PACKET PO SCH (07:21)
[2022-10-04] MEDS: GABAPENTIN 100 MG CAP PO SCH ×3 (07:21→21:37)
[2022-10-04] MEDS: DOCUSATE SODIUM 100MG CAPSULE PO SCH ×2 (07:21→21:00)
[2022-10-04] MEDS: ENOXAPARIN 40MG/0.4ML SYRINGE (J1650 PER 10MG) SC SCH (07:21)
[2022-10-04] MEDS: ANALGESIC BALM CRM 3OZ TOP SCH ×3 (07:23→21:00)
[2022-10-04] MEDS ORDERED: LACTULOSE 20GM/30ML SYRUP UDC PO ONE (13:00)
[2022-10-04 14:00] VITALS: BP 129/65; TEMP 97.1; O2SAT 96
[2022-10-04 20:00] VITALS: BP 136/63; TEMP 97.5; O2SAT 94
[2022-10-04] MEDS: SENNA 8.6 MG TAB (SENOKOT) PO SCH (21:00)
[2022-10-04] MEDS: MIRTAZAPINE 7.5MG PER 1/2 TABLET PO SCH (21:37)
[2022-10-04] MEDS: LORazepam 1 MG TAB PO SCH (21:38)
[2022-10-05 06:00] VITALS: BP 136/72; TEMP 98.3; O2SAT 100
[2022-10-05] MEDS: CYCLOBENZAPRINE 5MG TABLET PO PRN (06:59)
[2022-10-05 07:00] LABS: BLOOD UREA NITROGEN 9 MG/DL (9-23); CALCIUM LEVEL 8.3 MG/DL (8.3-10.6); CARBON DIOXIDE LEVEL 26 MMOL/L (20-31); CHLORIDE LEVEL 99 MMOL/L (98-107); CREATININE FOR GFR 0.39 MG/DL (0.55-1.30); GLOMERULAR FILTRATION RATE > 60.0 (>32); GLUCOSE, FASTING 87 MG/DL (74-106); MAGNESIUM LEVEL 1.7 MG/DL (1.8-2.4); POTASSIUM SERUM 3.7 MMOL/L (3.5-5.1); SODIUM LEVEL 132 MMOL/L (136-145)
[2022-10-05] MEDS: GABAPENTIN 100 MG CAP PO SCH ×3 (08:46→20:18)
[2022-10-05] MEDS: VITAMIN D 1,000 INTERNATIONAL UNITS TABLET PO SCH (08:46)
[2022-10-05] MEDS: PANTOPRAZOLE 40MG TAB (PROTONIX) PO SCH (08:46)
[2022-10-05] MEDS: MAGNESIUM OXIDE 400MG TAB (MAG-OX) PO SCH (08:46)
[2022-10-05] MEDS: THIAMINE 100 MG TAB PO SCH (08:46)
[2022-10-05] MEDS: CARVedilol 12.5 MG TAB PO SCH ×4 (08:47→21:00)
[2022-10-05] MEDS: amLODIPine 5 MG TAB PO SCH (08:47)
[2022-10-05] MEDS: ACETAMINOPHEN 500 MG TAB PO SCH ×3 (08:47→20:20)
[2022-10-05] MEDS: BISACODYL 5MG TAB PO SCH ×2 (08:48→08:59)
[2022-10-05] MEDS: MIRALAX *UNIT DOSE* 17GM PACKET PO SCH (08:48)
[2022-10-05] MEDS: ENOXAPARIN 40MG/0.4ML SYRINGE (J1650 PER 10MG) SC SCH (08:48)
[2022-10-05] MEDS: DOCUSATE SODIUM 100MG CAPSULE PO SCH ×3 (08:51→20:18)
[2022-10-05] MEDS: LOSARTAN 50MG TABLET PO SCH ×4 (08:51→21:00)
[2022-10-05] MEDS: ANALGESIC BALM CRM 3OZ TOP SCH ×3 (08:54→21:28)
[2022-10-05 20:00] VITALS: BP 129/65; TEMP 97.8; O2SAT 96
[2022-10-05] MEDS: SENNA 8.6 MG TAB (SENOKOT) PO SCH (20:18)
[2022-10-05] MEDS: MIRTAZAPINE 7.5MG PER 1/2 TABLET PO SCH (21:28)
[2022-10-05] MEDS: LORazepam 1 MG TAB PO SCH (21:28)
[2022-10-06] MEDS: CYCLOBENZAPRINE 5MG TABLET PO PRN ×2 (05:15→20:33)
[2022-10-06 06:00] VITALS: BP 137/72; TEMP 97.6; O2SAT 99
[2022-10-06] MEDS ORDERED: LOSA-528 PO (06:41)
[2022-10-06] MEDS ORDERED: MAGN400T2 PO (06:41)
[2022-10-06] MEDS ORDERED: CYCL5TAB PO (06:41)
[2022-10-06] MEDS ORDERED: AMLO1TAB24 PO (06:41)
[2022-10-06] MEDS ORDERED: THIA100TA PO (06:41)
[2022-10-06] MEDS ORDERED: GABA-1171 PO (06:41)
[2022-10-06] MEDS ORDERED: LORA1TAB23 PO (06:41)
[2022-10-06] MEDS ORDERED: MIRT-10 PO (06:41)
[2022-10-06 07:21] LABS: BASO # 0.1 10^3/uL (0.0-0.2); BASO % 0.6 % (0.0-1.0); EOS # 0.1 10^3/uL (0.0-0.5); HEMATOCRIT 33.3 % (36.0-47.0); HEMOGLOBIN 11.3 g/dl (12.0-15.5); LYMPH % 12.2 % (24.0-44.0); MEAN CORPUSCULAR HEMOGLOBIN 34.2 pg (27.0-33.0); MEAN CORPUSCULAR HGB CONC 33.9 g/dl (32.0-36.5); MEAN CORPUSCULAR VOLUME 100.9 fl (80.0-96.0); MONO # 0.6 10^3/uL (0.0-0.8); MONO % 7.5 % (2.0-8.0); NEUTROPHILS # 6.1 10^3/uL (1.5-8.5); NEUTROPHILS % 78.4 % (36.0-66.0); PLATELET COUNT, AUTOMATED 322 10^3/uL (150-450); WHITE BLOOD COUNT 7.8 10^3/uL (4.0-10.0)
[2022-10-06] MEDS: VITAMIN D 1,000 INTERNATIONAL UNITS TABLET PO SCH (08:42)
[2022-10-06] MEDS: BISACODYL 5MG TAB PO SCH (08:42)
[2022-10-06] MEDS: DOCUSATE SODIUM 100MG CAPSULE PO SCH ×2 (08:42→20:33)
[2022-10-06] MEDS: PANTOPRAZOLE 40MG TAB (PROTONIX) PO SCH ×2 (08:42→20:35)
[2022-10-06] MEDS: MAGNESIUM OXIDE 400MG TAB (MAG-OX) PO SCH (08:42)
[2022-10-06] MEDS: THIAMINE 100 MG TAB PO SCH (08:42)
[2022-10-06] MEDS: GABAPENTIN 100 MG CAP PO SCH ×3 (08:42→21:36)
[2022-10-06] MEDS: ACETAMINOPHEN 500 MG TAB PO SCH ×3 (08:43→20:34)
[2022-10-06] MEDS: CARVedilol 12.5 MG TAB PO SCH ×2 (08:43→20:34)
[2022-10-06] MEDS: amLODIPine 5 MG TAB PO SCH (08:43)
[2022-10-06] MEDS: LOSARTAN 50MG TABLET PO SCH ×2 (08:43→20:34)
[2022-10-06] MEDS: ANALGESIC BALM CRM 3OZ TOP SCH ×3 (08:44→20:35)
[2022-10-06] MEDS: MIRALAX *UNIT DOSE* 17GM PACKET PO SCH (08:44)
[2022-10-06] MEDS: ENOXAPARIN 40MG/0.4ML SYRINGE (J1650 PER 10MG) SC SCH (08:44)
[2022-10-06] MEDS ORDERED: LACTULOSE 20GM/30ML SYRUP UDC PO ONE (11:00)
[2022-10-06] MEDS ORDERED: IBUPROFEN 600MG TAB PO PRN (11:45)
[2022-10-06 14:00] VITALS: BP 121/62; TEMP 97.6; O2SAT 94
[2022-10-06] MEDS: SIMETHICONE 80MG CHEW TAB PO SCH ×2 (18:12→20:34)
[2022-10-06 20:00] VITALS: BP 143/68; TEMP 97.5; O2SAT 95
[2022-10-06] MEDS: SENNA 8.6 MG TAB (SENOKOT) PO SCH (20:34)
[2022-10-06] MEDS: MIRTAZAPINE 7.5MG PER 1/2 TABLET PO SCH (20:34)
[2022-10-06] MEDS: LORazepam 1 MG TAB PO SCH (21:36)
[2022-10-07 06:00] VITALS: BP 148/72; TEMP 98.3; O2SAT 100
[2022-10-07] MEDS: CYCLOBENZAPRINE 5MG TABLET PO PRN ×2 (06:32→13:16)
[2022-10-07] MEDS: ENOXAPARIN 40MG/0.4ML SYRINGE (J1650 PER 10MG) SC SCH (07:41)
[2022-10-07] MEDS: amLODIPine 5 MG TAB PO SCH (07:42)
[2022-10-07] MEDS: CARVedilol 12.5 MG TAB PO SCH (07:42)
[2022-10-07] MEDS: PANTOPRAZOLE 40MG TAB (PROTONIX) PO SCH (07:42)
[2022-10-07] MEDS: SIMETHICONE 80MG CHEW TAB PO SCH (07:42)
[2022-10-07] MEDS: THIAMINE 100 MG TAB PO SCH (07:42)
[2022-10-07] MEDS: GABAPENTIN 100 MG CAP PO SCH (07:42)
[2022-10-07] MEDS: VITAMIN D 1,000 INTERNATIONAL UNITS TABLET PO SCH (07:43)
[2022-10-07] MEDS: ACETAMINOPHEN 500 MG TAB PO SCH (07:43)
[2022-10-07 07:44] VITALS: BP 148/72
[2022-10-07] MEDS: DOCUSATE SODIUM 100MG CAPSULE PO SCH (07:44)
[2022-10-07] MEDS: MAGNESIUM OXIDE 400MG TAB (MAG-OX) PO SCH (07:44)
[2022-10-07] MEDS: BISACODYL 5MG TAB PO SCH (07:44)
[2022-10-07] MEDS: LOSARTAN 50MG TABLET PO SCH (07:44)
[2022-10-07] MEDS: MIRALAX *UNIT DOSE* 17GM PACKET PO SCH (07:44)
[2022-10-07] MEDS: ANALGESIC BALM CRM 3OZ TOP SCH (07:45)
== END 2022-10-07 13:20 | disposition short-term general hospital (02) | DRG 560 ==
LOC: M ED INP 16:04 → M PM&R 20:10
PROVIDERS: ADMIT Physical Medicine & Rehabilitation; ATTEND Physical Medicine & Rehabilitation
DX: S42.201D Unspecified fracture of upper end of right humerus, subsequent encounter for fracture with routine healing (principal); E87.1 Hypo-osmolality and hyponatremia; G83.4 Cauda equina syndrome; M48.56XA Collapsed vertebra, not elsewhere classified, lumbar region, initial encounter for fracture; M48.55XA Collapsed vertebra, not elsewhere classified, thoracolumbar region, initial encounter for fracture; M48.54XA Collapsed vertebra, not elsewhere classified, thoracic region, initial encounter for fracture; F10.139 Alcohol abuse with withdrawal, unspecified; E22.2 Syndrome of inappropriate secretion of antidiuretic hormone; R29.6 Repeated falls; I10 Essential (primary) hypertension; M81.0 Age-related osteoporosis without current pathological fracture; G47.00 Insomnia, unspecified; Z74.09 Other reduced mobility; Z74.1 Need for assistance with personal care; D64.9 Anemia, unspecified; Z79.899 Other long term (current) drug therapy; E55.9 Vitamin D deficiency, unspecified; K59.00 Constipation, unspecified; R10.9 Unspecified abdominal pain; T43.025A Adverse effect of tetracyclic antidepressants, initial encounter; G24.01 Drug induced subacute dyskinesia; F41.9 Anxiety disorder, unspecified; F32.A Depression, unspecified